=== PATIENT | male | born 1995 | race African-American/Black ===

== ENCOUNTER 2020-05-04 11:46 | Emergency (ER) | payer SELFPAY ==
[2020-05-04] MEDS ORDERED: Ibuprofen 800 MG TAB ONE (12:05)
[2020-05-04] MEDS ORDERED: Ibuprofen 200 MG TAB ONE (12:06)
== END 2020-05-04 12:10 | disposition home or self-care (01) ==
LOC: BURERS 11:46
DX: M79.671 Pain in right foot (principal); M79.672 Pain in left foot; M21.42 Flat foot [pes planus] (acquired), left foot; M21.41 Flat foot [pes planus] (acquired), right foot
CPT/HCPCS: 99283